=== PATIENT | female | born 1975 | race Hispanic/Latino ===

== ENCOUNTER 2017-12-13 05:25 | Day surgery (SDC) | payer SELFPAY ==
[2017-12-13 06:00] LABS: Bilirubin Negative (Negative); Blood, Urine Negative (Negative); Clarity CLEAR (Clear); Glucose, Urine (Dipstick) Negative (Negative); Leukocyte Negative (Negative); Nitrite Negative (Negative); Protein, Urine (Dipstick) Negative (Neg-Trace); Specific Gravity, Urine 1.012 (1.002-1.036); Urobilinogen 0.2 mg/dL (0.2-1.0)
[2017-12-13] MEDS ORDERED: Ondansetron ODT 8 MG TAB ONE (06:11)
[2017-12-13] MEDS ORDERED: Morphine 4 MG/ML VIAL ONE ×4 (06:11→10:26)
[2017-12-13 06:27] LABS: Hemoglobin 13.1 g/dL (12.0-16.0); Mean Corpuscular HGB CONC 33.9 g/dL (32.0-36.0); Mean Corpuscular Hemoglobin 26.1 pg (27.0-31.0); Mean Corpuscular Volume 77.2 fl (81.0-99.0); Mean Platelet Volume 7.8 fL (7.4-10.4); Platelet Count 378 thou/uL (130-400); RBC Distribution Width 12.5 % (11.5-14.5); Red Blood Cell (RBC) Count 5.02 mill/uL (4.20-5.40); White Blood Cell (WBC) Count 20.3 thou/uL (4.8-10.8)
[2017-12-13 06:40] LABS: ALT (SGPT) 16 U/L (8-55); AST (SGOT) 12 U/L (5-34); Albumin 3.5 g/dL (3.5-5.0); Alkaline Phosphatase 95 U/L (40-150); Anion Gap 12 mmol/L (10-20); BUN (Urea Nitrogen) 9 mg/dL (7.0-18.7); Bilirubin, Total 0.3 mg/dL (0.2-1.2); Calc. Creatinine Clearance 0 mL/min (70-130); Calcium 8.1 mg/dL (7.8-10.44); Carbon Dioxide 20 mmol/L (22-29); Chloride 108 mmol/L (98-107); Estimated GFR-MDRD Greater than 90; Globulin 2.7 g/dL (2.4-3.5); Glucose 154 mg/dL (70-105); Lipase 15 U/L (8-78); Potassium 3.2 mmol/L (3.5-5.1); Protein, Total 6.2 g/dL (6.0-8.3); Sodium 137 mmol/L (136-145)
[2017-12-13 06:42] LABS: Band 1 % (5-11); Eosinophils 2 % (0-10); Lymphocytes 10 % (21-51); MDiff Complete? YES; Monocytes 3 % (0-10); Neutrophil 84 % (42-75)
[2017-12-13 07:00] LABS: Pregnancy Test - Urine (BHCG) Negative (Negative); Pregu Control Background? CLEAR/WHITE (CLR/WHITE); Pregu Control Bar Appear? YES (CONTROL BAR); Specific Gravity 1.012 (1.002-1.036)
[2017-12-13] MEDS ORDERED: Piperacillin/Tazobactam 4.5 GM VIAL ONE (07:59)
--- NOTE | 2017-12-13 09:29 | CT ---
PRELIMINARY REPORT/[facility]/EMERGENTY AFTER-HOURS PROCEDURE CT Abdomen and Pelvis With Intravenous Contrast EXAM DATE/TIME: 12/13/2017 6:42 AM CLINICAL HISTORY: 42 years old, female; Pain; Abdominal pain; Epigastric; Prior surgery; Surgery date: 6+ months; Addit ional info: 42 yo f presents to ed C/O sharp epigastric pain with radiation to back that started at m idnight tonight. Pt also reports x3 episodes of n/v. Pt last ate at 22: 00 last night and had seafood . Pt denies seafood causing problems in the past and daughter states she also ate the seafood without issues. Denies fever. Reports x1 episodes of diarrhea and states she is also constipation. Last bm a t midnight tonight. Pt last took advil at 0500 this morning. Pt has h/o cholecystectomy and states th is pain feels similar to when she had to have gallbladder out in the past. TECHNIQUE: Axial computed tomography images of the abdomen and pelvis with intravenous contrast. Coronal reforma tted images were created and reviewed. CONTRAST: 90 mL of ISOVUE administered intravenously. COMPARISON: No relevant prior studies available. FINDINGS: Lung bases: Mild dependent changes are present in the lung bases. ABDOMEN: Liver: Unremarkable. No mass. Gallbladder and bile ducts: Status post cholecystectomy. No ductal dilation. Pancreas: Unremarkable. No mass. No ductal dilation. Spleen: The spleen is mildly prominent. Adrenals: Unremarkable. No mass. Kidneys and ureters: Unremarkable. No solid mass. No hydronephrosis. Stomach and bowel: Unremarkable. No obstruction. No mucosal thickening. Appendix: The appendix is dilated measuring approximately 1 cm with some intraluminal fluid and mild periappendiceal stranding. Findings are compatible with appendicitis. PELVIS: Bladder: Unremarkable. No mass. Reproductive: There is a 1.9 cm enhancing hypervascular lesion in the right adnexa, most compatible w ith a corpus luteum. ABDOMEN and PELVIS: Intraperitoneal space: Unremarkable. No free air. No significant fluid collection. Bones/joints: No acute fracture. No dislocation. Soft tissues: Bilateral breast implants. Vasculature: Unremarkable. No abdominal aortic aneurysm. Lymph nodes: Unremarkable. No enlarged lymph nodes. IMPRESSION: 1. The appendix is dilated measuring approximately 1 cm with some intraluminal fluid and mild periapp endiceal stranding. Findings are compatible with appendicitis. 2. Remainder of findings as described above. These findings were discussed with Dr. JENNINGS at 8:20 AM EST. Thank you for allowing us to participate in the care of your patient. Dictated and Authenticated by: Rosie Willoughby MD 12/13/2017 7:23 AM Central Time ([place] & [place]) EMERGENT AFTER HOURS CT OF THE ABDOMEN AND PELVIS PERFORMED WITH INTRAVENOUS CONTRAST ENHANCEMENT: Comparison: 02-27-15 History: Abdominal pain radiating which is more epigastric in nature, radiating to the back. FINDINGS: The lung bases show some linear scar. The liver has some fatty change. The spleen is within normal limits in size. The pancreas shows no ma ss or ductal dilatation and the gallbladder has been removed. The right and left adrenal glands and right and left kidneys are normal in size. There are two puncta te nonobstructing lower pole left renal calculi. No obstruction or evidence for a ureteral calculus. There is no significant periaortic or mesenteric adenopathy. CT PELVIS PERFORMED WITH CONTRAST ENHANCMENT: There is a fat containing periumbilical hernia noted. The appendix is slightly dilated. It shows a po ssible small phlebolith present. There is minimal periappendiceal fat stranding seen. There is no shirley dence of abscess. There is a partially collapsed follicle involving the right adnexa. There is trace free fluid seen. N o significant adenopathy or mass. IMPRESSION: 1. Slightly distended appendix with some minimal fat stranding in this area. This would suggest early appendicitis. 2. Nonobstructing lower pole left renal calculi. 3. Fat containing periumbilical hernia. 4. Fatty changes of the liver. 5. Partially collapsed right ovarian follicle. 6. This report is in agreement with the temporary report issued by [facility]. POS: [facility]
[2017-12-13] MEDS ORDERED: Ondansetron ODT 4 MG TAB ONE (10:29)
--- NOTE | 2017-12-13 11:09 | HP ---
CHIEF COMPLAINT: Right lower abdominal pain. HISTORY OF PRESENT ILLNESS: The patient is a 42-year-old female. She speaks little Mauritian . Exam was conducted in Faroese. She noted onset of lower abdominal pain last night. She had some episodes of nausea and vomiting. T he pain is localized in her right lower quadrant. She presented to the emergency room this morning w here she underwent laboratory and radiologic studies. Laboratory studies revealed leukocytosis with white blood cell count of 20,000, hemoglobin is essentially normal. CT scan revealed changes consist ent with acute appendicitis. She also appears to have a recurrent umbilical hernia (this was repaire d at the time of prior cholecystectomy). PAST MEDICAL HISTORY: Essentially negative. PAST SURGICAL HISTORY: 1. Laparoscopic cholecystectomy. 2. Breast implant surgery. MEDICATIONS: None. ALLERGIES: None. PERSONAL AND SOCIAL HISTORY: She is with 3 children. She presents with one of her daughters . She does not smoke nor does she drink alcohol. She works at [employer]. She has lived in [facility] for 19 years, but speaks very little Mauritian. REVIEW OF SYSTEMS: Otherwise, unremarkable. FAMILY HISTORY: Noncontributory. PHYSICAL EXAMINATION: VITAL SIGNS: She is afebrile. Vital signs are within normal limits. GENERAL: She is a well-developed, well-nourished, moderately obese female resting in bed in no acute distress. She is alert and oriented x3. HEAD, EYES, EARS, NOSE, AND THROAT: Unremarkable. NECK: Supple, without mass or tenderness. LUNGS: Clear to auscultation throughout. CARDIAC: Regular rate and rhythm without murmur. ABDOMEN: Soft, nontender, and nondistended. She has focal tenderness in right lower quadrant with o bvious guarding. EXTREMITIES: Unremarkable. ASSESSMENT: Patient with acute appendicitis. PLAN: Laparoscopic appendectomy. I discussed the operation in detail with the patient as well as po tential risks. She understands and agrees to proceed.
[2017-12-13] MEDS ORDERED: Bupivacaine/Epinephrine 0.25% 30 ML VIAL ONE (12:37)
[2017-12-13] MEDS ORDERED: Midazolam HCl 2 mg/2 ml Vial ONE (12:43)
[2017-12-13] MEDS ORDERED: Fentanyl 100 MCG/2 ML VIAL ONE ×2 (12:43→14:41)
[2017-12-13] MEDS ORDERED: HYDROmorphone 0.5 MG/0.5 ML SYRINGE ONE (12:56)
[2017-12-13] MEDS ORDERED: Piperacillin/Tazobactam 3.375 GM VIAL ONE (12:59)
[2017-12-13] MEDS ORDERED: ISOVUE-370 76%-LOCM 1 ML ONE (16:04)
[2017-12-13] MEDS ORDERED: Promethazine HCl 25 MG/ML VIAL ONE (16:25)
[2017-12-13] MEDS ORDERED: Glycopyrrolate 0.2 MG/ML 5 ML SYRINGE ONE (16:39)
[2017-12-13] MEDS ORDERED: Lidocaine 1% PF 5 ML VIAL ONE (16:39)
[2017-12-13] MEDS ORDERED: Ketorolac Tromethamine 30 MG/ML VIAL ONE (16:39)
[2017-12-13] MEDS ORDERED: PROPOFOL 200 MG/20 ML VIAL ONE (16:39)
[2017-12-13] MEDS ORDERED: Succinylcholine Chloride 20 MG/ML 10 ml SYRINGE FS ONE (16:39)
--- NOTE | 2017-12-13 21:09 | OP ---
DATE OF PROCEDURE: 12/13/2017 PREOPERATIVE DIAGNOSIS: Acute appendicitis. POSTOPERATIVE DIAGNOSIS: Acute appendicitis. OPERATION PERFORMED: Laparoscopic appendectomy. SURGEON: Niraj Zavala M.D. ANESTHESIA: General endotracheal. INDICATIONS: The patient is a 42-year-old female. She presents at this time with symptoms and CT scan consistent with acute appendicitis and is taken to the operating room at this time for la paroscopic appendectomy. DESCRIPTION OF OPERATION: Informed consent was obtained. The patient was taken to the operating roland m where general endotracheal anesthesia was obtained with the patient in supine position. Abdomen wa s prepped with ChloraPrep and draped in the sterile fashion. Local anesthetic was infiltrated and a 5-mm left lower quadrant incision was created through which a Veress needle was passed into the perit lange cavity and pneumoperitoneum established using carbon dioxide up to a pressure of 15 mmHg. A 5- mm trocar port was passed through the same incision. Laparoscopic camera was passed through this por t. Under direct vision, a 12-mm suprapubic port was placed. There were adhesions to the anterior ab dominal wall in the area of her prior umbilical incision. She had an umbilical hernia repaired simul taneous with the laparoscopic cholecystectomy about 3 years previously. This hernia had obviously re curred. There were omental adhesions to this area. These were taken down using sharp dissection. A 5-mm supraumbilical incision was created through her same incision site used previously. The port w as then passed uneventfully through the hernia sac into the abdominal cavity. Attention was turned to the right lower quadrant. She was found to have an enlarged and inflamed jose endix with obvious appendicitis, but without evidence of perforation. The retroperitoneal attachment s were mobilized using electrocautery. The mesoappendix was taken down using electrocautery. The ba se of the appendix was skeletonized. The base of the appendix was felt to be without evidence of sig nificant inflammation and it was therefore divided between two Endoloop ties. The appendiceal stump was cauterized. The appendix was removed using a specimen retrieval sac through the suprapubic port. Fascia was closed with 0 Vicryl suture using a GraNee needle. The right lower quadrant and pelvis were thoroughly irrigated. All irrigant was aspirated. All ports and instruments were removed under direct vision. Pneumoperitoneum was carefully evacuated. Marcaine 0.25% with epinephrine was infil trated in each port site. Skin edges approximated with 4-0 Monocryl subcuticular suture. Dermabond was placed externally. There were no complications. The patient tolerated the procedure well and wa s taken to recovery room in stable condition.
== END 2017-12-13 19:34 | disposition home or self-care (01) ==
LOC: ERS 05:25 → SDC 09:38
PROVIDERS: ATTEND Specialist
PROC: 0DTJ4ZZ Resection of Appendix, Percutaneous Endoscopic Approach (ICD-10-PCS; principal; 2017-12-13)
DX: K35.80 Unspecified acute appendicitis (principal); Z98.890 Other specified postprocedural states
CPT/HCPCS: 36415; 74177; 80053; 81003; 81025; 83690; 85025; 88304; 96361; 96365; 96374; 96375; 96376; J1170; J1885; J2001; J2250; J2270; J2543; J2550; J2704; J3010; Q0162

== ENCOUNTER 2019-06-01 03:05 | Emergency (ER) | payer SELFPAY ==
--- NOTE | 2019-06-01 08:12 | RAD ---
4 VIEWS LEFT KNEE: Date: 06/01/19 COMPARISON: None. HISTORY: Left knee pain after fall. FINDINGS: 4 views of the left knee show no evidence of acute fracture or dislocation. A small osteophyte is see n in the patellofemoral compartment. No knee effusion is seen. IMPRESSION: Mild left knee osteoarthritis without acute osseous abnormality. POS: [facility]
== END 2019-06-01 04:13 | disposition home or self-care (01) ==
LOC: ERS 03:05
DX: S80.02XA Contusion of left knee, initial encounter (principal); W18.30XA Fall on same level, unspecified, initial encounter

== ENCOUNTER 2021-08-05 09:38 | Outpatient (CLI) | payer OTHER | END 2021-08-05 09:39 | disposition home or self-care (01) | LOC: BICMAMMO 09:38 | PROVIDERS: ATTEND Nurse Practitioner Women's Health | DX: Z12.31 Encounter for screening mammogram for malignant neoplasm of breast (principal); Z98.82 Breast implant status | CPT/HCPCS: 77063; 77067 ==

== ENCOUNTER 2022-10-13 15:44 | Outpatient (CLI) | payer OTHER | END 2022-10-13 15:45 | disposition home or self-care (01) | LOC: BICMAMMO 15:44 | PROVIDERS: ATTEND Nurse Practitioner Women's Health | DX: Z12.31 Encounter for screening mammogram for malignant neoplasm of breast (principal); Z98.82 Breast implant status | CPT/HCPCS: 77063; 77067 ==